=== PATIENT | male | born 1955 | race Caucasian/White ===

== ENCOUNTER → 2018-05-09 | Outpatient (CLI) | payer BC ==
--- NOTE | 2018-05-09 17:56 | PCVCIMAG ---
APPROVED REPORT Study performed: 05/09/2018 13:53:37 EXAM: Comprehensive 2D, Doppler, and color-flow Echocardiogram Patient Location: Echo lab Status: routine BSA: 2.33 HR: 103 bpmBP: 132/79 mmHg Rhythm: Atrial Fibrillation Other Information Study Quality: Adequate Risk Factors: Cardiac Risk Factors: HTN, DM Indications Atrial Fibrillation Dyspnea 2D Dimensions IVSd: 13.99 (7-11mm) LVDd: 43.77 mm PWd: 14.44 (7-11mm)Ascending Ao: 39.85 (22-36mm) LVDs: 37.20 (25-40mm) Left Atrium: 57.58 (27-40mm) Aortic Root: 39.41 mm LV Single Plane 4CH: 41.27 % LV Single Plane 2CH: 47.20 % Biplane EF: 45.0 % Volumes Left Atrial Volume (Systole) Single Plane 4CH: 113.87 mLSingle Plane 2CH: 135.11 mL LA ESV Index: 58.00 mL/m2 Aortic Valve AoV Peak Jamey.: 1.55 m/s AO Peak Gr.: 10.13 mmHgLVOT Max P.14 mmHg LVOT Max V: 0.88 m/s Tricuspid Valve TR Peak Jamey.: 2.76 m/s TR Peak Gr.: 30.43 mmHg Left Ventricle The left ventricle is normal size. There is normal LV segmental wall motion. Mild concentric left ventricular hypertrophy. Left ventricular systolic function is mildly decreased globally. LVEF is 40-45%. This study is not technically sufficient to allow evaluation of the LV diastolic function due to atrial fibrillation. Right Ventricle The right ventricle is normal size. The right ventricular systolic function is normal. Atria Left atrium is severely dilated. Right atrium is moderately dilated. Aortic Valve The aortic valve is normal in structure. Trace aortic regurgitation. There is no aortic valvular stenosis. Mitral Valve Heavy mitral annular calcification. Trace mitral regurgitation. No evidence of mitral valve stenosis. Tricuspid Valve The tricuspid valve is normal in structure. Mild tricuspid regurgitation with PAP of 37 mmHg. Pulmonic Valve The pulmonary valve is normal in structure. There is no pulmonic valvular regurgitation. Great Vessels Aortic root is mildly dilated to 3.9 cm. The ascending aorta is mildly dilated to 4.0 cm. IVC is normal in size and collapses >50% with inspiration. Pericardium There is no pericardial effusion. There is no pleural effusion. <Conclusion> The left ventricle is normal size. Mild concentric left ventricular hypertrophy. Left ventricular systolic function is mildly decreased globally. LVEF is 40-45%. This study is not technically sufficient to allow evaluation of the LV diastolic function due to atrial fibrillation. The right ventricle is normal size. Left atrium is severely dilated. Right atrium is moderately dilated. The aortic valve is normal in structure. Trace aortic regurgitation. There is no aortic valvular stenosis. Heavy mitral annular calcification. Trace mitral regurgitation. Mild tricuspid regurgitation with PAP of 37 mmHg. Aortic root is mildly dilated to 3.9 cm. There is no pericardial effusion.
== END | disposition home or self-care (01) ==
LOC: PCVCIMAG 16:00
PROVIDERS: ATTEND Internal Medicine Cardiovascular Disease
DX: I48.91 Unspecified atrial fibrillation (principal); E11.9 Type 2 diabetes mellitus without complications; I10 Essential (primary) hypertension; I07.1 Rheumatic tricuspid insufficiency
CPT/HCPCS: 93306

== ENCOUNTER → 2018-06-19 | Outpatient (CLI) | payer BC ==
--- NOTE | 2018-06-19 09:35 | PCVCIMAG ---
EXAM: BILATERAL RENAL ULTRASOUND AND BILATERAL RENAL DUPLEX INDICATION: Hypertension FINDINGS: Right kidney: Length measures 13.1 cm. No hydronephrosis or extensive renal scarring. Right renal duplex: Adequate technical quality. No sonographic evidence of renal artery stenosis. The aortic to renal artery ratio is 1.4. The renal vein is patent. Left kidney: Length measures 13.3 cm. No hydronephrosis or extensive renal scarring. 1.6 x 1.7 x 3.7 cm benign cyst lower pole. Left renal duplex: Adequate technical quality. No sonographic evidence of renal artery stenosis. The aortic to renal artery ratio is 1.3. The renal vein is patent. Bladder: No obvious abnormalities. IMPRESSION: No significant renal artery stenosis. No hydronephrosis bilaterally. LOC:[id number]
== END | disposition home or self-care (01) ==
LOC: PCVCIMAG 08:50
PROVIDERS: ATTEND Internal Medicine Cardiovascular Disease
DX: I10 Essential (primary) hypertension (principal)
CPT/HCPCS: 76770; 93005; 93975; G0463

== ENCOUNTER → 2018-12-24 | Outpatient (CLI) | payer MEDICARE | END | disposition home or self-care (01) | LOC: PCVCCLINIC 11:30 | PROVIDERS: ATTEND Internal Medicine Cardiovascular Disease | DX: I48.91 Unspecified atrial fibrillation (principal); I42.9 Cardiomyopathy, unspecified; E78.00 Pure hypercholesterolemia, unspecified; E11.9 Type 2 diabetes mellitus without complications; R06.02 Shortness of breath; I10 Essential (primary) hypertension; Z79.4 Long term (current) use of insulin; Z87.891 Personal history of nicotine dependence; Z79.899 Other long term (current) drug therapy | CPT/HCPCS: 36415; 80061; 93005; G0463 ==

== ENCOUNTER → 2019-01-01 | Outpatient (CLI) | payer MEDICARE ==
[~2019-01-01] MED LIST: REGADENOSON 0.4 MG/5 ML DISP.SYRIN. IV ONE
--- NOTE | 2019-01-01 09:52 | PCVCIMAG ---
APPROVED REPORT Study performed: 01/01/2019 07:43:51 EXAM: Comprehensive 2D, Doppler, and color-flow Echocardiogram Patient Location: Echo lab Status: routine BSA: 2.28 HR: 86 bpmBP: 124/84 mmHg Rhythm: Atrial Fibrillation Other Information Study Quality: Adequate Risk Factors: Cardiac Risk Factors: HTN Indications Diabetes Atrial Fibrillation Cardiomyopathy 2D Dimensions IVSd: 13.56 (7-11mm)LVOT Diam: 22.22 (18-24mm) LVDd: 45.20 mm PWd: 13.89 (7-11mm)Ascending Ao: 39.81 (22-36mm) LVDs: 36.46 (25-40mm) Left Atrium: 55.67 (27-40mm) Aortic Root: 38.01 mm LV Single Plane 4CH: 35.31 % LV Single Plane 2CH: 43.09 % Biplane EF: 37.8 % Volumes Left Atrial Volume (Systole) Single Plane 4CH: 139.19 mLSingle Plane 2CH: 157.25 mL LA ESV Index: 65.00 mL/m2 Aortic Valve AoV Peak Jamey.: 1.57 m/s AO Peak Gr.: 10.35 mmHgLVOT Max P.01 mmHg LVOT Max V: 0.86 m/s ROMERO Vmax: 2.11 cm2 AI Vmax: 4.24 m/s AI [place]: 2.43 m/s2 AI PHT: 504.75 ms Pulmonary Valve PV Peak Jamey.: 0.82 m/sPV Peak Gr.: 2.71 mmHg Tricuspid Valve TR Peak Jamey.: 2.83 m/s TR Peak Gr.: 32.01 mmHg Left Ventricle The left ventricle is normal size. There is normal LV segmental wall motion. Mild concentric left ventricular hypertrophy. Left ventricular systolic function is mildly decreased. LVEF is 40-45%. This study is not technically sufficient to allow evaluation of the LV diastolic function due to atrial fibrillation. Right Ventricle The right ventricle is normal size. The right ventricular systolic function is normal. Atria Left atrium is severely dilated. Right atrium is severely dilated. Aortic Valve Moderate aortic valve sclerosis. Mild aortic regurgitation. There is no aortic valvular stenosis. Mitral Valve The mitral valve is normal in structure. Trace mitral regurgitation. No evidence of mitral valve stenosis. Tricuspid Valve The tricuspid valve is normal in structure. Mild tricuspid regurgitation with PAP of 42 mmHg. Pulmonic Valve The pulmonary valve is normal in structure. There is mild pulmonic valvular regurgitation. Great Vessels Aortic root is borderline dilated to 3.8 cm. The ascending aorta is mildly dilated to 4.0 cm. IVC is normal in size and collapses >50% with inspiration. Pericardium There is no pericardial effusion. There is no pleural effusion. <Conclusion> The left ventricle is normal size. Left ventricular systolic function is mildly decreased. LVEF is 40-45%. This study is not technically sufficient to allow evaluation of the LV diastolic function due to atrial fibrillation. The right ventricle is normal size. Left atrium is severely dilated. Right atrium is severely dilated. Moderate aortic valve sclerosis. Mild aortic regurgitation. There is no aortic valvular stenosis. Trace mitral regurgitation. Mild tricuspid regurgitation with PAP of 42 mmHg. Aortic root is borderline dilated to 3.8 cm. The ascending aorta is mildly dilated to 4.0 cm. There is no pericardial effusion.
--- NOTE | 2019-01-01 11:39 | PCVCIMAG ---
APPROVED REPORT Imaging Protocol: Rest Tc-99m/Stress Tc-99m 1 day Study performed: 01/01/2019 09:03:12 Indication: Afib, Dyspnea Patient Location: Out-Patient Stress Nurse: Leticia Khalil RN, DOMINICK Walker Tech:Onesimo RangelDEVAUGHN Ht: 5 ft 10 in Wt: 245 lbs BSA: 2.28 m2 HR: 80 bpm BP: 161/89 mmHg BMI: 35.1 Rhythm: Afib, Non specific ST and T Abnormality Medical History Medical History: Age, Hyperlipidemia, HTN, Afib, CHF, Former Smoker, Cardiomyopathy, Diabetic Insulin Medications: Eliquis, Lipitor, Lanoxin, Cardizem, Vascepa, Lantus, Humulog, Toprol XL Allergies: No known drug allergies Meds Held (24 hrs): Toprol XL Resting Data Rest SPECT myocardial perfusion imaging was performed in supine position 45 minutes following the intravenous injection of 10.9 mCi of Tc-99m Sestamibi. Time of rest injection: 829 Date: 01/01/2019 Administration Route: IV Administration Site: Right AC Pharmacologic Stress Pharmacologic stress test was performed by injecting Regadenoson 0.4 mg IV push over 10-15 seconds immediately followed by the intravenous injection of 35 mCi of Tc-99m Sestamibi. Time of stress injection: 939 Date: 01/01/2019 Administration Route: IV Administration Site: Right AC Gated Stress SPECT was performed 45 minutes after stress injection. The images were gated to evaluate regional wall motion and calculate left ventricular ejection fraction. Stress Test Details Stress Test: Pharmacologic stress testing performed using 0.4 mg of regadenoson per 5 mL given IV over 10 seconds. Reason for pharmacologic stress test: Afib. HRMax Heart Rate (APMHR): 155 bpm Resting HR: 80 bpmTarget HR (85% APMHR): 131 bpm Max HR Achieved: 105 bpm % of APMHR: 67 Recovery HR: 95 bpm BP Resting BP: 161/89 mmHg Max BP: 149/86 mmHg Recovery BP: 147/87 mmHg ECG Resting ECG: AFib, nonspecific ST-T abnormalities Stress ECG: AFib, nonspecific ST-T abnormalities Arrhythmia: None Recovery ECG: AFib, nonspecific ST-T abnormalities Clinical Reason for Termination: Completed protocol Stress Symptoms: Dyspnea Symptoms resolved during recovery. Stress ECG Conclusion ECG: Non-ischemic Study Quality Study: Good Artifact: Mild Diaphragmatic artifact Study Data Post stress, the left ventricular ejection was 39%.. SSS: 2 SRS: 7 SDS: 0 TID = 0.98. Perfusion No evidence of stress induced ischemia or prior myocardial infarction. Wall Motion Normal left ventricular size and function with no regional wall motion abnormalities. Moderately decreased left ventricular systolic function. Nuclear Conclusion No evidence of stress induced ischemia or prior myocardial infarction. Normal left ventricular size and function with no regional wall motion abnormalities. Post stress, the left ventricular ejection was 39%. No change since prior study dated June 2016. Interpreted by: Harry Jaime MD Electronically Approved: 01/01/2019 11:37:10 <Conclusion> ECG: Non-ischemic
== END | disposition home or self-care (01) ==
LOC: PCVCIMAG 07:39
PROVIDERS: ATTEND Internal Medicine Cardiovascular Disease
DX: I08.2 Rheumatic disorders of both aortic and tricuspid valves (principal); I48.91 Unspecified atrial fibrillation; E11.9 Type 2 diabetes mellitus without complications; I42.9 Cardiomyopathy, unspecified; R06.02 Shortness of breath
CPT/HCPCS: 78452; 93017; 93306; A9500; J2785